=== PATIENT | female | born 1950 | race Caucasian/White ===

== ENCOUNTER 2018-10-05 13:57 | Emergency (ER) | payer MEDICARE, MEDICAID ==
[~2018-10-05] VITALS: Ht 152.4 cm; Wt 104.5 kg
[~2018-10-05 13:57] MED LIST: CHOL500044 PO; DICL100G15 TOP; DULO60CA64; GABA-532 PO; LEVO100T78 PO; MIRA50TA PO; MORP10CA8 PO; OMEP20CA10 PO; POTA99TA10 PO; TRAZ-219 PO; [UNRECOGNIZED DRUG - OTHER]
[2018-10-05 14:06] VITALS: BP 147/106
== END 2018-10-05 15:15 | disposition home or self-care (01) ==
LOC: ER 13:58
DX: S90.32XA Contusion of left foot, initial encounter (principal); N18.9 Chronic kidney disease, unspecified; M19.90 Unspecified osteoarthritis, unspecified site; G89.29 Other chronic pain; Z90.49 Acquired absence of other specified parts of digestive tract; Z98.84 Bariatric surgery status; Z98.890 Other specified postprocedural states; Z88.8 Allergy status to other drugs, medicaments and biological substances; Z88.2 Allergy status to sulfonamides; Z88.5 Allergy status to narcotic agent; Z79.899 Other long term (current) drug therapy; W20.8XXA Other cause of strike by thrown, projected or falling object, initial encounter; Y93.89 Activity, other specified; Y92.89 Other specified places as the place of occurrence of the external cause; Y99.9 Unspecified external cause status
CPT/HCPCS: 73630; 99283

== ENCOUNTER 2020-02-16 17:04 | Emergency (ER) | payer BC, MEDICAID ==
[~2020-02-16] VITALS: Ht 157.5 cm; Wt 106.8 kg
[~2020-02-16 17:04] MED LIST changes: -DICL100G15 TOP; -DULO60CA64; +DULO60CA65; +EST1T PO; +FOLATE PO; -GABA-532 PO; +HYDROCORTIZONE PO; +MAGN500C16 PO; +MEDR2.5T7 PO; -OMEP20CA10 PO; +OMEP20CA15 PO; +OXYC1TAB17 PO; -TRAZ-219 PO; +TRAZ-256 PO; +VILA10TA PO; +VIT B PO
[2020-02-16] MEDS ORDERED: ketorolac tromethamine 15mg/ml inj. IM ONE (19:40)
[2020-02-16 20:36] VITALS: BP 141/75
== END 2020-02-16 20:10 | disposition home or self-care (01) ==
LOC: ER 17:06
DX: M19.90 Unspecified osteoarthritis, unspecified site (principal); M25.552 Pain in left hip; N18.9 Chronic kidney disease, unspecified; G89.29 Other chronic pain; Z90.49 Acquired absence of other specified parts of digestive tract; Z95.1 Presence of aortocoronary bypass graft; Z60.2 Problems related to living alone; Z88.2 Allergy status to sulfonamides; Z88.5 Allergy status to narcotic agent; Z79.899 Other long term (current) drug therapy
CPT/HCPCS: 96372; 99283; J1885

== ENCOUNTER 2020-04-26 14:47 | Emergency (ER) | payer BC, MEDICAID ==
[~2020-04-26] VITALS: Ht 160 cm; Wt 120.5 kg
[~2020-04-26 14:47] MED LIST changes: +AMLO10TA13 PO; +AMOX-580 PO; +CHOL200074 PO; +CYAN1TAB41 PO; +DULO60CA65 PO; +ESTR0.5T PO; +FERR324T4 PO; +HYDR5TAB14 PO; +LEVO100T PO; +LISI-600 PO; +OMEP-50 PO; +OXYC-138 PO; +VILA20TA PO
--- NOTE | 2020-04-26 16:07 | NUR ---
Pt states that her symptoms onset shortly afte she found out her son had suddenly and unexpectedly.
[2020-04-26] MEDS ORDERED: normal saline 1000ml 1,000 ML IV ONE ×3 (16:15→18:20)
[2020-04-26 16:59] LABS: CLARITY,URINE SLIGHTLY CLOUDY (Clear); COLOR,URINE YELLOW (Yellow); GLUCOSE, URINE NEGATIVE (Neg); KETONES,URINE NEGATIVE (Neg); LEUKOCYTE ESTERASE ,URINE TRACE (Neg); NITRITES, URINE NEGATIVE (Neg); OCCULT BLOOD,URINE NEGATIVE (Neg); PH,URINE 5.5 (4.8-8.0); PROTEIN,URINE NEGATIVE (Neg); UROBILINOGEN,URINE 0.2 E.U/dL (0.2-1.0)
[2020-04-26 17:02] LABS: UA COLLECTION TYPE OTHER
[2020-04-26 17:06] LABS: BACTERIA,URINE 1+ /HPF (Neg); CAL OXALATE CRYSTALS 2+ /HPF (NEGATIVE); HYALINE CASTS 0-3 /LPF (NEGATIVE); MUCUS STRANDS NONE SEEN /LPF (Neg); RBC,URINE NONE SEEN /HPF (0-2); SQUAMOUS EPITHELIAL CELL,UR MODERATE /LPF (FEW); YEAST FEW /HPF (NEGATIVE)
[2020-04-26 17:35] LABS: BASOPHILS % (AUTO) 0.4 % (0-1); EOSINOPHILS % (AUTO) 0.5 % (0-6); HEMATOCRIT 36.3 % (35.0-45.0); HEMOGLOBIN 12.2 g/dl (12.0-16.0); LYMPHOCYTES % (AUTO) 27.3 % (21-51); MEAN CORPUSCULAR HEMOGLOBIN 32.7 PG (27.0-31.0); MEAN CORPUSCULAR HGB CONC 33.7 g/dL (33.0-36.5); MEAN CORPUSCULAR VOLUME 96.9 FL (78-98); MEAN PLATELET VOLUME 6.9 FL (7.4-10.4); MONOCYTES # (AUTO) 0.6 X10'3 (0-0.9); MONOCYTES % (AUTO) 8.1 % (2-12); NEUTROPHILS # (AUTO) 4.8 X10'3 (1.8-7.7); NEUTROPHILS % (AUTO) 63.7 % (42-75); PLATELET COUNT 260 X10'3 (140-440); RED BLOOD COUNT 3.74 X10'6 (4.20-5.60); RED CELL DISTRIBUTION WIDTH 14.8 % (11.5-14.5); WHITE BLOOD COUNT 7.5 X10'3 (4.5-11.0)
[2020-04-26 17:50] LABS: ALANINE AMINOTRANSFERASE 45 U/L (12-78); ALBUMIN 3.2 G/DL (3.4-5.0); ALBUMIN/GLOBULIN RATIO 1.2 (1.1-1.5); ALKALINE PHOSPHATASE 100 IU/L (46-116); ANION GAP 14 (8-16); ASPARTATE AMINO TRANSFERASE 38 U/L (10-37); BILIRUBIN,TOTAL 0.6 MG/DL (0.1-1.0); BLOOD UREA NITROGEN 17 MG/DL (7-18); CALCIUM 8.7 MG/DL (8.5-10.1); CHLORIDE 104 MMOL/L (99-107); CREATININE 1.42 MG/DL (0.40-0.90); GLUCOSE 114 MG/DL (70-104); POTASSIUM 3.9 MMOL/L (3.5-5.1); SODIUM 138 MMOL/L (135-145); TOTAL CARBON DIOXIDE 20.2 MMOL/L (24-32); TOTAL PROTEIN 5.8 G/DL (6.4-8.2); eGFR 36 ML/MIN
[2020-04-26] MEDS ORDERED: ondansetron 4mg rapidly disintigrating tab PO ONE (18:05)
[2020-04-26] MEDS ORDERED: HYDROcodone/acetaminophen 5mg/325mg tablet PO ONE ×2 (18:05→19:25)
[2020-04-26 19:59] LABS: D-DIMER 0.45 MG/L FEU (0-0.50)
[2020-04-26] MEDS ORDERED: LOPE1TAB46 PO (20:10)
[2020-04-26] MEDS ORDERED: CEPH250T PO (20:22)
[2020-04-26] MEDS ORDERED: HYDR-4383 PO (20:43)
[2020-04-26 21:05] VITALS: BP 95/71
== END 2020-04-26 21:07 | disposition home or self-care (01) ==
LOC: ER 14:49
DX: R19.7 Diarrhea, unspecified (principal); E86.0 Dehydration; N30.00 Acute cystitis without hematuria; G89.29 Other chronic pain; M25.551 Pain in right hip; Z79.899 Other long term (current) drug therapy; Z98.890 Other specified postprocedural states; Z88.2 Allergy status to sulfonamides; Z88.5 Allergy status to narcotic agent
CPT/HCPCS: 36415; 71045; 80053; 81001; 83880; 84484; 85025; 85379; 87077; 87088; 87186; 87635; 93005; 96360; 99285; C9803; J7030; 51702

== ENCOUNTER 2021-03-19 02:06 | Emergency (ER) | payer BC, MEDICAID ==
[~2021-03-19] VITALS: Ht 154.9 cm; Wt 109.0 kg
[~2021-03-19 02:06] MED LIST changes: -AMLO10TA13 PO; -AMOX-580 PO; +ASCO-294 PO; +ASPI-1397 PO; -CHOL200074 PO; -DULO60CA65 PO; -EST1T PO; -ESTR0.5T PO; -FOLATE PO; -HYDR5TAB14 PO; -HYDROCORTIZONE PO; -LEVO100T78 PO; -LISI-600 PO; +LISI10TA27 PO; -MEDR2.5T7 PO; -MORP10CA8 PO; -OMEP-50 PO; -OXYC-138 PO; -POTA99TA10 PO; -VILA10TA PO; -VIT B PO; -[UNRECOGNIZED DRUG - OTHER]
--- NOTE | 2021-03-19 02:24 | NUR ---
PT REPORTS PAIN AND BURNING W/URINATION. NO BLOOD NOTED. DENIES OTHER SYMPTOMS
[2021-03-19 03:13] LABS: CLARITY,URINE SLIGHTLY CLOUDY (Clear); COLOR,URINE YELLOW (Yellow); GLUCOSE, URINE NEGATIVE (Neg); KETONES,URINE NEGATIVE (Neg); PROTEIN,URINE NEGATIVE (Neg); UA COLLECTION TYPE CLN CATCH MIDSTREAM
[2021-03-19 03:14] LABS: LEUKOCYTE ESTERASE ,URINE SMALL (Neg); NITRITES, URINE NEGATIVE (Neg); OCCULT BLOOD,URINE MODERATE (Neg); UROBILINOGEN,URINE 0.2 E.U/dL (0.2-1.0)
[2021-03-19 03:17] LABS: BACTERIA,URINE NONE SEEN /HPF (Neg); MUCUS STRANDS FEW /LPF (Neg); SQUAMOUS EPITHELIAL CELL,UR FEW /LPF (FEW); WBC,URINE TNTC /HPF (0-4)
[2021-03-19] MEDS ORDERED: FOSFOMYCIN TROMETHAMINE 3 GM PACKET PO ONE (03:20)
[2021-03-19 03:53] VITALS: BP 127/80
--- NOTE | 2021-03-19 04:37 | NUR ---
PTS CAB IS HERE.
== END 2021-03-19 05:32 | disposition home or self-care (01) ==
LOC: ER 02:07
DX: N39.0 Urinary tract infection, site not specified (principal); R30.0 Dysuria; I12.9 Hypertensive chronic kidney disease with stage 1 through stage 4 chronic kidney disease, or unspecified chronic kidney disease; N18.9 Chronic kidney disease, unspecified; M19.90 Unspecified osteoarthritis, unspecified site; G89.29 Other chronic pain; Z87.440 Personal history of urinary (tract) infections; Z90.49 Acquired absence of other specified parts of digestive tract; Z98.890 Other specified postprocedural states; Z60.2 Problems related to living alone; Z88.2 Allergy status to sulfonamides; Z88.5 Allergy status to narcotic agent; Z88.8 Allergy status to other drugs, medicaments and biological substances; Z79.82 Long term (current) use of aspirin; Z79.899 Other long term (current) drug therapy
CPT/HCPCS: 81001; 87088; 99284

== ENCOUNTER 2021-07-18 15:47 | Emergency (ER) | payer BC, MEDICAID ==
[~2021-07-18] VITALS: Ht 157.5 cm; Wt 100.0 kg
[2021-07-18 17:05] VITALS: BP 113/80
== END 2021-07-18 17:44 | disposition left against medical advice (07) ==
LOC: ER 15:47
DX: J00 Acute nasopharyngitis [common cold] (principal); R05.9 Cough, unspecified; R09.89 Other specified symptoms and signs involving the circulatory and respiratory systems; Z53.21 Procedure and treatment not carried out due to patient leaving prior to being seen by health care provider